=== PATIENT | female | born 1990 | race Caucasian/White ===

== ENCOUNTER 2018-02-04 03:03 | Inpatient (IN) | payer BC ==
[~2018-02-04] VITALS: Ht 175.3 cm; Wt 113.4 kg
[~2018-02-04 03:03] MED LIST: FENTANYL/BUPIV./NS/PF 250 ML EPIDCONT ONE
[2018-02-04 03:21] VITALS: BP 144/88
[2018-02-04] MEDS ORDERED: OXYTOCIN 30U/ 0.9% NaCL 500ML 500 ML IV ONE (03:29)
[2018-02-04] MEDS ORDERED: METOCLOPRAMIDE 5 MG/ML, 2ML IVPush PRN (03:30)
[2018-02-04] MEDS ORDERED: ONDANSETRON 2MG/ML, 2ML IVPush PRN (03:30)
[2018-02-04] MEDS ORDERED: TERBUTALINE 1 MG/ML, 1ML SQ PRN (03:30)
[2018-02-04] MEDS ORDERED: SODIUM CITRATE/CITRIC ACID 30 ML UDC PO PRN (03:30)
[2018-02-04] MEDS ORDERED: ALUMINUM/MAG/SIMETHICONE 30 ML UDC PO PRN (03:30)
[2018-02-04] MEDS ORDERED: TERBUTALINE 1 MG/ML, 1ML IVPush PRN ×2 (03:30)
[2018-02-04] MEDS ORDERED: FENTANYL PF 100 MCG/2ML IV PRN (03:30)
[2018-02-04] MEDS ORDERED: FENTANYL PF 100 MCG/2ML IVPush PRN (03:30)
[2018-02-04] MEDS ORDERED: MISOPROSTOL 25 MCG TABLET VG PRN (03:30)
[2018-02-04] MEDS ORDERED: MISOPROSTOL 25 MCG TABLET PO PRN (03:30)
[2018-02-04] MEDS ORDERED: SODIUM CHLORIDE FLUSH 10ML SYR IVF PRN (03:30)
[2018-02-04] MEDS ORDERED: CALCIUM CARBONATE 500 MG TAB.CHEW PO PRN (03:30)
[2018-02-04] MEDS ORDERED: NEWBORN KIT ONE (03:42)
[2018-02-04] MEDS ORDERED: OXYTOCIN 30U/ 0.9% NaCL 500ML 500 ML ONE (03:43)
[2018-02-04] MEDS ORDERED: MISOPROSTOL 200 MCG TABLET ONE (03:43)
[2018-02-04 03:48] LABS: BASOPHILS # (AUTO) 0.06 x10^3/uL (0-0.1); BASOPHILS % (AUTO) 1 % (0-1); EOSINOPHILS # (AUTO) 0.14 x10^3/uL (0-0.4); EOSINOPHILS % (AUTO) 1 % (1-7); LYMPHOCYTES # (AUTO) 2.07 x10^3/uL (1-3.4); LYMPHOCYTES % (AUTO) 19 % (22-44); MD NO; MEAN CORPUSCULAR HEMOGLOBIN 29.2 pg (27.0-34.8); MEAN CORPUSCULAR HGB CONC 34.1 g/dL (32.4-35.8); MEAN CORPUSCULAR VOLUME 85.7 fL (80-100); MEAN PLATELET VOLUME 9.1 fL (7.4-10.4); MONOCYTES # (AUTO) 0.65 x10^3/uL (0.2-0.8); MONOCYTES % (AUTO) 6 % (2-9); NEUTROPHILS # (AUTO) 7.79 x10^3/uL (1.8-6.8); NEUTROPHILS % (AUTO) 73 % (42-75); PLATELET COUNT 254 x10^3/uL (130-400); RED CELL DISTRIBUTION WIDTH 14.4 % (9.6-15.2)
[2018-02-04 03:55] LABS: ALANINE AMINOTRANSFERASE 27 U/L (12-78); ALBUMIN 2.7 g/dL (3.4-5.0); ANION GAP 7 mmol/L (5-15); CALCIUM 8.7 mg/dL (8.5-10.1); CHLORIDE 110 mmol/L (98-107); CREATININE 0.69 mg/dL (0.55-1.02)
[2018-02-04 03:57] LABS: ALKALINE PHOSPHATASE 107 U/L (45-117); BILIRUBIN,TOTAL 0.2 mg/dL (0.2-1.0); TOTAL PROTEIN 6.7 g/dL (6.4-8.2)
[2018-02-04] MEDS ORDERED: OXYTOCIN 30U/ 0.9% NaCL 500ML 500 ML IV PRN (05:56)
[2018-02-04] MEDS ORDERED: FENTANYL/BUPIV./NS/PF 250 ML EPIDCONT SCH ×2 (06:05→12:46)
[2018-02-04] MEDS: FENTANYL PF 500 MCG, BUPIVACAINE/PF 0.5%, 30ML 62.5 ML in SODIUM CHLORIDE 0.9% 177.5 ML EPIDCONT SCH (06:30)
[2018-02-04] MEDS: D5%-LACTATED RINGERS 1,000 ML IV SCH ×3 (11:29→19:29)
[2018-02-04] MEDS ORDERED: BUPIVACAINE 0.25% ONE (12:48)
[2018-02-04] MEDS ORDERED: NALOXONE 0.4 MG/ML, 1ML IVPush PRN (13:00)
[2018-02-04] MEDS ORDERED: EPHEDRINE 50 MG/ML, 1ML IVPush PRN (13:00)
[2018-02-04] MEDS ORDERED: LACTATED RINGERS 1,000 ML IVBOLUS PRN (13:00)
[2018-02-04] MEDS: LACTATED RINGERS 1,000 ML IV SCH ×5 (13:45→23:46)
[2018-02-04 14:46] LABS: PROTEIN/CREATININE RATIO,URINE < 307 (0-200); TOTAL PROTEIN,URINE RANDOM < 5 mg/dL (0-12)
[2018-02-04 19:32] VITALS: BP 139/90
[2018-02-04] MEDS ORDERED: ACETAMINOPHEN 500 MG TABLET PO ONE (22:00)
[2018-02-04] MEDS ORDERED: ACETAMINOPHEN 500 MG TABLET ONE (22:01)
[2018-02-04] MEDS ORDERED: METOCLOPRAMIDE 5 MG/ML, 2ML ONE (22:26)
[2018-02-04] MEDS ORDERED: SODIUM CITRATE/CITRIC ACID 30 ML UDC ONE (22:26)
[2018-02-05] VITALS (11 sets, daily range): BP systolic 66–113; BP diastolic 37–80
[2018-02-05] MEDS ORDERED: OXYTOCIN 30U/ 0.9% NaCL 500ML 500 ML IV SCH (03:05)
[2018-02-05] MEDS: LACTATED RINGERS 1,000 ML IV SCH ×11 (03:05→20:30)
[2018-02-05] MEDS ORDERED: CEFAZOLIN 1,000 MG ONE (03:22)
[2018-02-05] MEDS ORDERED: DEXAMETHASONE 4 MG/ML, 1ML ONE (03:22)
[2018-02-05] MEDS ORDERED: SODIUM BICARBONATE 4.0%, 5ML ONE (03:22)
[2018-02-05] MEDS ORDERED: OXYTOCIN 10 UNITS/ML, 1ML ONE (03:22)
[2018-02-05] MEDS ORDERED: LIDOCAINE-MPF 2% ,5ML ONE (03:22)
[2018-02-05] MEDS ORDERED: KETOROLAC 30 MG/1 ML ONE (03:22)
[2018-02-05] MEDS ORDERED: ONDANSETRON 2MG/ML, 2ML ONE (03:22)
[2018-02-05] MEDS: D5%-LACTATED RINGERS 1,000 ML IV SCH (03:29)
[2018-02-05 03:30] LABS: MEAN CORPUSCULAR HEMOGLOBIN 28.6 pg (27.0-34.8); MEAN CORPUSCULAR HGB CONC 33.3 g/dL (32.4-35.8); MEAN CORPUSCULAR VOLUME 86.1 fL (80-100); MEAN PLATELET VOLUME 8.9 fL (7.4-10.4); PLATELET COUNT 241 x10^3/uL (130-400); RED BLOOD COUNT 4.62 x10^6/uL (3.82-5.3); RED CELL DISTRIBUTION WIDTH 14.9 % (9.6-15.2)
[2018-02-05] MEDS ORDERED: MEPERIDINE/PF 25MG/0.5ML IVPush PRN (03:30)
[2018-02-05] MEDS ORDERED: HYDROcodone/APAP 7.5-325MG/15ML UDC PO PRN (03:30)
[2018-02-05] MEDS ORDERED: hydrALAzine 20 MG/ML, 1ML IV PRN (03:30)
[2018-02-05] MEDS ORDERED: LACTATED RINGERS 1,000 ML IVBOLUS ONE ×2 (03:30→08:30)
[2018-02-05] MEDS ORDERED: MIDAZOLAM 1 MG/ML, 2ML IV PRN (03:30)
[2018-02-05] MEDS ORDERED: EPHEDRINE 50 MG/ML, 1ML IVPush PRN (03:30)
[2018-02-05] MEDS ORDERED: ALBUTEROL SULFATE 2.5 MG/3 ML NPPB PRN (03:30)
[2018-02-05] MEDS ORDERED: HYDROmorphone 1 MG/ML, 1ML IV PRN (03:30)
[2018-02-05] MEDS ORDERED: FENTANYL PF 100 MCG/2ML IV PRN (03:30)
[2018-02-05] MEDS ORDERED: OXYcodone 5 MG/5 ML ORAL.SOL UDC PO PRN (03:30)
[2018-02-05] MEDS ORDERED: METOCLOPRAMIDE 5 MG/ML, 2ML IV ONE (03:30)
[2018-02-05] MEDS ORDERED: SODIUM CITRATE/CITRIC ACID 30 ML UDC PO ONE (03:30)
[2018-02-05] MEDS ORDERED: ONDANSETRON 2MG/ML, 2ML IVPush PRN (03:30)
[2018-02-05] MEDS ORDERED: LABETALOL 5MG/ML, 20ML IV PRN (03:30)
[2018-02-05] MEDS ORDERED: PROMETHAZINE 25 MG/ML, 1ML IV PRN (03:30)
[2018-02-05 03:43] LABS: BASOPHILS # (AUTO) 0.03 x10^3/uL (0-0.1); BASOPHILS % (AUTO) 0 % (0-1); EOSINOPHILS # (AUTO) 0.02 x10^3/uL (0-0.4); EOSINOPHILS % (AUTO) 0 % (1-7); LYMPHOCYTES # (AUTO) 1.47 x10^3/uL (1-3.4); LYMPHOCYTES % (AUTO) 7 % (22-44); MD SCAN; MONOCYTES # (AUTO) 0.84 x10^3/uL (0.2-0.8); MONOCYTES % (AUTO) 4 % (2-9); NEUTROPHILS # (AUTO) 17.43 x10^3/uL (1.8-6.8); NEUTROPHILS % (AUTO) 88 % (42-75)
[2018-02-05] MEDS: KETOROLAC 30 MG/1 ML IV SCH ×4 (04:30→23:12)
[2018-02-05] MEDS: OXYTOCIN 30U/ 0.9% NaCL 500ML 500 ML IV SCH ×2 (04:30→14:32)
[2018-02-05] MEDS ORDERED: METHYLERGONOVINE 0.2 MG/ML IM PRN (04:30)
[2018-02-05] MEDS ORDERED: SIMETHICONE 80 MG CHEW TAB PO PRN (04:30)
[2018-02-05] MEDS ORDERED: MEPERIDINE/PF 50 MG/ML IVPush PRN (04:30)
[2018-02-05] MEDS ORDERED: OXYcodone/APAP 5/325MG TABLET PO PRN (04:30)
[2018-02-05] MEDS ORDERED: MISOPROSTOL 200 MCG TABLET PR PRN (04:30)
[2018-02-05] MEDS ORDERED: CALCIUM CARBONATE 500 MG TAB.CHEW PO PRN (04:30)
[2018-02-05] MEDS ORDERED: ONDANSETRON 2MG/ML, 2ML IV PRN (04:30)
[2018-02-05] MEDS: FENTANYL PF 500 MCG, BUPIVACAINE/PF 0.5%, 30ML 62.5 ML in SODIUM CHLORIDE 0.9% 177.5 ML EPIDCONT SCH (06:30)
[2018-02-05 08:59] LABS: MEAN CORPUSCULAR HEMOGLOBIN 28.8 pg (27.0-34.8); MEAN CORPUSCULAR HGB CONC 33.5 g/dL (32.4-35.8); PLATELET COUNT 242 x10^3/uL (130-400); RED BLOOD COUNT 3.49 x10^6/uL (3.82-5.3); RED CELL DISTRIBUTION WIDTH 14.5 % (9.6-15.2)
[2018-02-05] MEDS: PRENATAL VIT/IRON/FA 1 EACH TABLET PO SCH (09:00)
[2018-02-05 10:04] LABS: MD YES
[2018-02-05 10:08] LABS: BAND#(MANUAL) 5.57 x10^3/uL; BANDS%(MANUAL) 22 % (0-7); SEG#(MANUAL) 19.73 x10^3/uL (1.8-6.8); SEGS% (MANUAL) 78 % (42-75)
[2018-02-05 10:09] LABS: <PLATELET ESTIMATE> ADEQUATE; <PLT MORPHOLOGY> NORMAL PLT MORPH; ANISOCYTOSIS 1+
[2018-02-05 12:22] LABS: MEAN CORPUSCULAR HEMOGLOBIN 29.3 pg (27.0-34.8); MEAN CORPUSCULAR HGB CONC 33.6 g/dL (32.4-35.8); MEAN CORPUSCULAR VOLUME 87.1 fL (80-100); PLATELET COUNT 249 x10^3/uL (130-400); RED BLOOD COUNT 3.34 x10^6/uL (3.82-5.3); RED CELL DISTRIBUTION WIDTH 14.5 % (9.6-15.2)
[2018-02-05 13:10] LABS: MD YES
[2018-02-05 13:12] LABS: BAND#(MANUAL) 4.11 x10^3/uL; BANDS%(MANUAL) 16 % (0-7); LYMPH#(MANUAL) 1.29 x10^3/uL (1-3.4); LYMPHS% (MANUAL) 5 % (22-44); MONOS#(MANUAL) 0.77 x10^3/uL (0.3-2.7); MONOS% (MANUAL) 3 % (2-9); SEG#(MANUAL) 19.53 x10^3/uL (1.8-6.8); SEGS% (MANUAL) 76 % (42-75)
[2018-02-05 13:13] LABS: ANISOCYTOSIS 1+
[2018-02-05 13:14] LABS: <PLATELET ESTIMATE> ADEQUATE; <PLT MORPHOLOGY> NORMAL PLT MORPH; POLYCHROMASIA 1+
[2018-02-05 20:03] LABS: MEAN CORPUSCULAR HEMOGLOBIN 28.9 pg (27.0-34.8); MEAN CORPUSCULAR VOLUME 87.7 fL (80-100); MEAN PLATELET VOLUME 8.7 fL (7.4-10.4); PLATELET COUNT 211 x10^3/uL (130-400); RED BLOOD COUNT 2.91 x10^6/uL (3.82-5.3); RED CELL DISTRIBUTION WIDTH 14.6 % (9.6-15.2)
[2018-02-05 20:26] LABS: MD YES
[2018-02-05 20:30] LABS: BAND#(MANUAL) 1.37 x10^3/uL; BANDS%(MANUAL) 7 % (0-7); LYMPH#(MANUAL) 2.93 x10^3/uL (1-3.4); LYMPHS% (MANUAL) 15 % (22-44); MONOS#(MANUAL) 0.59 x10^3/uL (0.3-2.7); MONOS% (MANUAL) 3 % (2-9)
[2018-02-05 20:31] LABS: <PLATELET ESTIMATE> ADEQUATE; <PLT MORPHOLOGY> NORMAL PLT MORPH; <RBC MORPHOLOGY> NORMAL; SEGS% (MANUAL) 75 % (42-75)
[2018-02-06 00:20] VITALS: BP 100/65
[2018-02-06] MEDS: OXYTOCIN 30U/ 0.9% NaCL 500ML 500 ML IV SCH ×3 (00:30→20:30)
[2018-02-06] MEDS: LACTATED RINGERS 1,000 ML IV SCH ×6 (00:30→20:30)
[2018-02-06 04:00] VITALS: BP 107/70
[2018-02-06] MEDS: KETOROLAC 30 MG/1 ML IV SCH ×4 (05:15→22:57)
[2018-02-06 08:07] VITALS: BP 109/71
[2018-02-06] MEDS: DOCUSATE 100 MG CAPSULE PO PRN ×2 (08:45→22:58)
[2018-02-06] MEDS: PRENATAL VIT/IRON/FA 1 EACH TABLET PO SCH (10:07)
[2018-02-06] MEDS: OXYcodone/APAP 5/325MG TABLET PO PRN (10:51)
[2018-02-06] MEDS ORDERED: MEASLES,MUMPS&RUBELLA VACC/PF 0.5 ML SQ-VACC ONE (13:30)
[2018-02-06 19:20] VITALS: BP 103/63
[2018-02-07] MEDS: LACTATED RINGERS 1,000 ML IV SCH (04:30)
[2018-02-07 08:30] VITALS: BP 110/74
[2018-02-07] MEDS: PRENATAL VIT/IRON/FA 1 EACH TABLET PO SCH (09:00)
[2018-02-07] MEDS: DOCUSATE 100 MG CAPSULE PO PRN ×2 (09:46→22:58)
[2018-02-07] MEDS: IBUPROFEN 600 MG TABLET PO PRN ×3 (09:46→22:58)
[2018-02-07] MEDS ORDERED: IBUP-1222 PO (13:28)
[2018-02-07] MEDS ORDERED: OXYC-302 PO (13:29)
[2018-02-07 16:15] VITALS: BP 125/85
[2018-02-07] MEDS ORDERED: ONDANSETRON ODT 4 MG PO PRN (16:30)
[2018-02-07 20:15] VITALS: BP 128/79
[2018-02-08] MEDS: IBUPROFEN 600 MG TABLET PO PRN ×3 (05:51→19:03)
[2018-02-08 07:23] VITALS: BP 141/87
[2018-02-08] MEDS: PRENATAL VIT/IRON/FA 1 EACH TABLET PO SCH (09:00)
[2018-02-08] MEDS: DOCUSATE 100 MG CAPSULE PO PRN ×2 (13:01→19:03)
[2018-02-08 13:41] LABS: MEAN CORPUSCULAR HEMOGLOBIN 29.1 pg (27.0-34.8); MEAN CORPUSCULAR HGB CONC 33.8 g/dL (32.4-35.8); MEAN CORPUSCULAR VOLUME 85.8 fL (80-100); MEAN PLATELET VOLUME 8.2 fL (7.4-10.4); PLATELET COUNT 277 x10^3/uL (130-400); RED BLOOD COUNT 2.68 x10^6/uL (3.82-5.3); RED CELL DISTRIBUTION WIDTH 14.4 % (9.6-15.2)
[2018-02-08 15:11] LABS: MD YES
[2018-02-08 15:13] LABS: BAND#(MANUAL) 0.44 x10^3/uL; BANDS%(MANUAL) 4 % (0-7); LYMPH#(MANUAL) 1.53 x10^3/uL (1-3.4); LYMPHS% (MANUAL) 14 % (22-44); MONOS#(MANUAL) 0.33 x10^3/uL (0.3-2.7); MONOS% (MANUAL) 3 % (2-9); NRBC % (MANUAL) 1 % (0-1)
[2018-02-08 15:14] LABS: ANISOCYTOSIS 1+; MYELOCYTES# (MANUAL) 0.11 x10^3/uL (0-0); MYELOCYTES% (MANUAL) 1 % (0-0); POLYCHROMASIA 1+
[2018-02-08 15:15] LABS: <PLATELET ESTIMATE> ADEQUATE; <PLT MORPHOLOGY> NORMAL PLT MORPH; METAMYELOCYTES# (MANUAL) 0.22 x10^3/uL (0-0); METAMYELOCYTES% (MANUAL) 2 % (0-1); MICROCYTOSIS 1+; SEG#(MANUAL) 8.28 x10^3/uL (1.8-6.8); SEGS% (MANUAL) 76 % (42-75)
[2018-02-08] MEDS: OXYcodone/APAP 5/325MG TABLET PO PRN (19:03)
[2018-02-08 19:15] VITALS: BP 135/78
[2018-02-09] MEDS: IBUPROFEN 600 MG TABLET PO PRN ×3 (00:58→14:31)
[2018-02-09] MEDS: OXYcodone/APAP 5/325MG TABLET PO PRN ×2 (00:59→07:27)
[2018-02-09 07:20] VITALS: BP 146/103
[2018-02-09] MEDS: PRENATAL VIT/IRON/FA 1 EACH TABLET PO SCH (07:28)
[2018-02-09] MEDS: DOCUSATE 100 MG CAPSULE PO PRN (07:28)
[2018-02-09 08:55] VITALS: BP 129/84
[2018-02-09 13:25] LABS: BASOPHILS # (AUTO) 0.04 x10^3/uL (0-0.1); BASOPHILS % (AUTO) 0 % (0-1); EOSINOPHILS # (AUTO) 0.13 x10^3/uL (0-0.4); EOSINOPHILS % (AUTO) 1 % (1-7); LYMPHOCYTES # (AUTO) 1.65 x10^3/uL (1-3.4); LYMPHOCYTES % (AUTO) 13 % (22-44); MD NO; MEAN CORPUSCULAR HEMOGLOBIN 29.2 pg (27.0-34.8); MEAN CORPUSCULAR HGB CONC 33.6 g/dL (32.4-35.8); MEAN CORPUSCULAR VOLUME 86.8 fL (80-100); MEAN PLATELET VOLUME 7.7 fL (7.4-10.4); MONOCYTES # (AUTO) 0.64 x10^3/uL (0.2-0.8); MONOCYTES % (AUTO) 5 % (2-9); NEUTROPHILS # (AUTO) 10.29 x10^3/uL (1.8-6.8); NEUTROPHILS % (AUTO) 81 % (42-75); PLATELET COUNT 304 x10^3/uL (130-400); RED BLOOD COUNT 2.76 x10^6/uL (3.82-5.3); RED CELL DISTRIBUTION WIDTH 14.9 % (9.6-15.2)
== END 2018-02-09 16:15 | disposition home or self-care (01) | DRG 766 ==
LOC: LDOP 03:03 → LDIP 03:27 → 2NW 02-05 05:30
PROVIDERS: ADMIT Obstetrics & Gynecology; ATTEND Obstetrics & Gynecology
PROC: 10D00Z1 Extraction of Products of Conception, Low, Open Approach (ICD-10-PCS; principal; 2018-02-05)
DX: O42.92 Full-term premature rupture of membranes, unspecified as to length of time between rupture and onset of labor (principal); O32.8XX0 Maternal care for other malpresentation of fetus, not applicable or unspecified; O16.4 Unspecified maternal hypertension, complicating childbirth; Z82.3 Family history of stroke; Z82.49 Family history of ischemic heart disease and other diseases of the circulatory system; O32.4XX0 Maternal care for high head at term, not applicable or unspecified; Z37.0 Single live birth; Z3A.40 40 weeks gestation of pregnancy; Z83.3 Family history of diabetes mellitus; Z88.1 Allergy status to other antibiotic agents; O99.02 Anemia complicating childbirth; D64.9 Anemia, unspecified; Z23 Encounter for immunization
CPT/HCPCS: 36415; J7121; 80053; 82570; 82803; 84156; 84550; 85025; 86850; 86900; 89060; J0690; J1100; J1885; J2405; J2704; J3010; J3490; Q0162; J0330; J2370; J2590; J2765; J7120; Q0114